=== PATIENT | female | born 1950 | race Caucasian/White ===

== ENCOUNTER → 2016-11-03 | Outpatient (CLI) | payer MEDICARE, OTHER ==
--- NOTE | 2016-11-03 14:50 | RADRPT ---
PROCEDURE: XR Knee. CLINICAL INDICATION: Right knee arthroplasty. Pain. TECHNIQUE: Three views of the right knee are available for review. COMPARISON: None available FINDINGS: There has been prior right knee arthroplasty with femoral, tibial, and patellar components. No sign ificant joint effusion is seen. No acute fracture or dislocation is seen. Alignment is anatomic. IMPRESSION: 1. Status post right knee arthroplasty. . RPTAT: RR .Angelo Yoo MD, MD Date Time Electronically viewed and signed by .Angelo Yoo MD, on 11/03/2016 14:50 .L/
--- NOTE | 2016-11-04 06:04 | HKNOTE ---
DATE OF SERVICE: 11/03/2016 MAIN COMPLAINT: Pain in the right knee. HISTORY OF MAIN COMPLAINT: Patient is a 65-year-old female who underwent a right total knee replacement 8 months ago at the [facility] in [place]. She complains that she has never been free of pain in the knee and she also has never obtained a full range of motion. The patient had a rather slow recovery from the knee surgery. She was with a walking aid for 3 or 4 weeks after the surgery and she had a great deal of pain. The surgery was performed by an orthopedic surgeon who is a friend of her family. PRESENT COMPLAINTS: The pain is localized to the knee. The pain is aggravated by walking, weightbearing and stair climbing. She usually gets rest pain. She does not get night pain. She takes Tylenol for the pain which "helps a little." She does not have any back pain (or history of back problems). She has no numbness or tingling in the legs. On a flat and level surface, she can walk as far as she needs to, but she has pain with every step. She does not use a walking aid. She does limp some of the time. She does not have a shoe lift. She can put on her shoes and socks, but not clip her toenails on the right side. PAST ORTHOPEDIC HISTORY: Right knee replacement by an orthopedic surgeon in [place] 8 months ago. Prior cortisone intake: None. Alcohol intake: None. Other joint problems: Left knee, which needs a knee replacement. Blood tests for arthritis: None. Prior injuries to hips and knees: None. Work status: The patient is retired. PAST MEDICAL HISTORY: Entirely negative. PAST SURGICAL HISTORY: Benign brain tumor removed in 1994. Hysterectomy in 1996. DRUG ALLERGIES: None. MEDICATIONS: None listed. The patient takes [id number] pain medications. FAMILY HISTORY: Noncontributory. SYSTEMS REVIEW: Varicose veins, gait disturbance, otherwise negative. HABITS: Patient does not smoke or drink alcoholic beverages. 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 PHYSICAL EXAMINATION: GENERAL: On physical examination, patient is a fit looking, somewhat overweight, 65-year-old female. She comes in with her . VITAL SIGNS: Height 5 feet 6 inches, weight 170 pounds, blood pressure 120/60, temperature 98.4. Pulse is 78 per minute, respirations 12 per minute. EXTREMITIES: The patient walks without a walking aid. Her gait appears to be normal. Hip examination: Both hips have full range of motion without pain. Examination of the right knee: Scar of knee replacement. No external sign of infection or inflammation. No external sign of sympathetic dystrophy. Light touch to the skin does cause pain. Extension and flexion is to 92 degrees. Marked pain on attempting to exceed that range of motion. No effusion. All ligaments are intact. No tenderness anywhere around the knee. Examination of the left knee: Extension lacks 15 degrees, flexion lacks 20 degrees. Ligaments are intact. Varus alignment. 6 plus crepitus in the knee and in the patella. Marked pain on attempting to force the knee beyond the range of motion. IMAGING: Plain x-rays of the right knee obtained today at the [facility] were reviewed (3 views): A knee replacement implant has been installed. It would appear that cement was either completely not used or there is such a thin layer of cement that it is not visible. The alignment of all the components appears to be as ideal as can be except for the slope on the proximal tibia which is sloping forward rather than backwards. No evidence of loosening whatsoever of the implant components (In essence, an extremely well performed operation other than the slope on the tibial component). DIAGNOSES: 1. Painful right total knee replacement. 2. History of benign brain tumor. 3. Severe degenerative osteoarthritis of the left knee. DISCUSSION: The patient is advised that I long ago gave up performing uncemented knee replacements for the simple reason that if they are painful afterwards, you are not sure if the pain is coming from the lack of cement or some other source. The knee is markedly stiff without flexion beyond 92-93 degrees. Pain on attempting further flexion. The patient was advised that her pain may be emanating from the option to use a cementless implant that the lack of range of motion probably relates to the reverse posterior slope on the tibial component. The patient is advised that it probably is in her best interest to just live with this knee and accommodate to the restrictions it places on her life or to consider a full revision of the knee if she wishes to eliminate the pain. The full revision does not guarantee she will get full motion in the knee. I briefly discussed with her that she cannot expect further motion in this knee by physical therapy or any other means at this long point following knee replacement operation. In order to discuss the pros and cons of a knee revision replacement on the right side, I have given her the name of Dr. Francesco Alanis. The patient will be seen again as necessary for further evaluation and treatment. Dictated By: Frankie Vazquez MD /[email or web address]/[email or web address] /Document#: [id number]
== END | disposition home or self-care (01) ==
LOC: HKI 14:20
DX: M17.12 Unilateral primary osteoarthritis, left knee (principal); Z96.651 Presence of right artificial knee joint
CPT/HCPCS: 73562; G0463